=== PATIENT | male | born 1945 | race Caucasian/White ===

== ENCOUNTER → 2019-10-17 | Outpatient (CLI) | payer MEDICARE ==
--- NOTE | 2019-10-17 13:54 | XR ---
EXAMINATION TYPE: XR hand limited RT DATE OF EXAM: 10/17/2019 CLINICAL HISTORY: Jamming injury with pain worse in the arm. TECHNIQUE: Frontal, lateral and oblique images of the right hand are obtained. COMPARISON: None. FINDINGS: There is no acute fracture/dislocation evident in the right hand. Mild to moderate narrowi ng throughout the fingers involving PIP and DIP joints. Moderate size spur radial aspect first interp halangeal joint. The overlying soft tissue appears unremarkable. IMPRESSION: There is no acute fracture or dislocation in the right hand.
== END | disposition home or self-care (01) ==
LOC: LABWHC1 13:34
PROVIDERS: ATTEND Nurse Practitioner Family
DX: M79.641 Pain in right hand (principal)

== ENCOUNTER → 2021-08-06 | Outpatient (CLI) | payer MEDICARE ==
--- NOTE | 2021-08-07 03:10 | MR ---
EXAMINATION TYPE: MR brain wo con DATE OF EXAM: 08/06/2021 COMPARISON: 11/15/2014 HISTORY: Memory loss, possible CVA. Multiplanar multiecho imaging of the brain without contrast. There is some cerebral cortical atrophy. There is no mass effect or midline shift. There is no sign o f intracranial hemorrhage. Diffusion images show no sign of an acute infarct. On the FLAIR images the re is some mild linear increased signal adjacent to the lateral ventricles. There are 2 or 3 small 3 mm foci of increased signal in the white matter in the walters-white matter junction of the cerebral hem ispheres. The larger is in the right temporal lobe. Sella turcica appears normal. Corpus callosum is intact. The brainstem is intact. Cerebellum appears normal. IMPRESSION: Age-related mild atrophy and White matter changes around the lateral ventricles. Small white matter h igh signal foci stable compared to old exam and of doubtful significance. This could be minimal micro vascular ischemia. No acute intracranial abnormality.
== END | disposition home or self-care (01) ==
LOC: RADMRIMAIN 16:41
PROVIDERS: ATTEND Psychiatry & Neurology Neurology
DX: G31.89 Other specified degenerative diseases of nervous system (principal)
CPT/HCPCS: 70551

== ENCOUNTER → 2022-04-27 | Outpatient (CLI) | payer MEDICARE ==
[2022-04-27 14:50] LABS: Chol/HDL Ratio 2.57 Ratio; LDL Cholesterol,Calculated 87.8 mg/dL (0.0-131.0)
[2022-04-27 15:15] LABS: ALT 11 U/L (10-49); AST 36 U/L (14-35); African American GFR (CKD) 77.2 (60.0-200.0); Albumin 4.4 g/dL (3.8-4.9); Albumin/Globulin Ratio 1.09 (1.60-3.17); Alkaline Phosphatase 51 U/L (41-126); BUN/Creat Ratio 12.24 Ratio (12.00-20.00); Blood Urea Nitrogen 13.1 mg/dL (9.0-27.0); Calcium 9.8 mg/dL (8.7-10.3); Carbon Dioxide 25.1 mmol/L (20.0-27.5); Chloride 104 mmol/L (96-109); Globulin 4.1 g/dL (1.6-3.3); Glucose 86 mg/dL (70-110); Non-African American GFR(CKD) 66.6 (60.0-200.0); Potassium 4.7 mmol/L (3.5-5.5); Sodium 139 mmol/L (135-145); Total Protein 8.5 g/dL (6.2-8.2)
== END | disposition home or self-care (01) ==
LOC: LABWHC1 09:03
PROVIDERS: ATTEND Internal Medicine Geriatric Medicine
DX: Z00.00 Encounter for general adult medical examination without abnormal findings (principal); R73.9 Hyperglycemia, unspecified; E78.5 Hyperlipidemia, unspecified; N40.0 Benign prostatic hyperplasia without lower urinary tract symptoms; G20 Parkinson's disease
CPT/HCPCS: 36415; 80053; 80061; 84153; 84443

== ENCOUNTER → 2023-01-05 | Outpatient (CLI) | payer MEDICARE ==
[2023-01-05 17:52] LABS: T4, Free (Free Thyroxine) 1.26 ng/dL (0.80-1.80)
== END | disposition home or self-care (01) ==
LOC: LABWHC1 13:07
PROVIDERS: ATTEND Psychiatry & Neurology Neurology
DX: E03.9 Hypothyroidism, unspecified (principal); T67.1XXS Heat syncope, sequela; R61 Generalized hyperhidrosis
CPT/HCPCS: 36415; 82607; 84439; 84443

== ENCOUNTER → 2024-07-11 | Outpatient (CLI) | payer MEDICARE ==
[2024-07-11 16:11] LABS: T4, Free (Free Thyroxine) 0.99 ng/dL (0.80-1.80)
== END | disposition home or self-care (01) ==
LOC: LABWHC1 09:30
PROVIDERS: ATTEND Psychiatry & Neurology Neurology
DX: G20.A1 Parkinson's disease without dyskinesia, without mention of fluctuations (principal); F03.90 Unspecified dementia, unspecified severity, without behavioral disturbance, psychotic disturbance, mood disturbance, and anxiety; R41.3 Other amnesia; R73.9 Hyperglycemia, unspecified
CPT/HCPCS: 36415; 82607; 82746; 83036; 84439; 84443